=== PATIENT | male | born 1960 | race Caucasian/White ===

== ENCOUNTER 2022-05-13 11:26 | Outpatient (CLI) | payer OTHER | END 2022-05-13 11:27 | disposition home or self-care (01) | LOC: LABBT 11:26 | PROVIDERS: ATTEND Ophthalmology Retina Specialist | DX: Z20.822 Contact with and (suspected) exposure to COVID-19 (principal) | CPT/HCPCS: 87811 ==

== ENCOUNTER 2022-05-16 07:18 | Day surgery (SDC) | payer OTHER ==
[2022-05-14 15:56] VITALS: BMI 31.8
[~2022-05-16 07:18] MED LIST: Acetaminophen 500 MG TAB PO PRN; Cyclopentolate 1% Opth Drop 2 ML BOT R EYE SCH; EPINEPHrine 0.3 MG, Dextrose 50% 3 ML in Ophthalmic Irrigation Solution 500 ML IRR SCH; Midazolam HCl 2 mg/2 ml Vial ONE; Phenylephrine 2.5% Ophth Soln 5 ML BOT R EYE SCH; fentaNYL Citrate/PF 100 MCG/2 ML SYRINGE ONE
[2022-05-16] MEDS ORDERED: Cyclopentolate 1% Opth Drop 2 ML BOT ONE (07:37)
[2022-05-16] MEDS ORDERED: Phenylephrine 2.5% Ophth Soln 5 ML BOT ONE (07:37)
[2022-05-16] MEDS ORDERED: CEFAZOLIN 1 GM VIAL ONE (08:41)
[2022-05-16] MEDS ORDERED: PROPOFOL 200 MG/20 ML VIAL ONE (08:41)
[2022-05-16] MEDS ORDERED: Lidocaine 4% PF 5 ML AMP ONE (08:41)
[2022-05-16] MEDS ORDERED: Triamcinolone 40 MG/ML VIAL ONE (08:41)
[2022-05-16] MEDS ORDERED: Bupivacaine 0.75% 10 ML VIAL ONE (08:41)
[2022-05-16] MEDS ORDERED: Dextrose 50% Abboject 50 ML SYRINGE ONE (08:41)
[2022-05-16] MEDS ORDERED: Lidocaine 1% PF 5 ML VIAL ONE (08:41)
[2022-05-16] MEDS ORDERED: Maxitrol 0.1% Opth Oint 3.5 GM TUBE ONE (08:41)
== END 2022-05-16 09:57 | disposition home or self-care (01) ==
LOC: SDC 07:18
PROVIDERS: ATTEND Ophthalmology Retina Specialist
PROC: 08T43ZZ Resection of Right Vitreous, Percutaneous Approach (ICD-10-PCS; principal; 2022-05-16)
PROC: 08QE3ZZ Repair Right Retina, Percutaneous Approach (ICD-10-PCS; principal; 2022-05-16)
DX: H43.11 Vitreous hemorrhage, right eye (principal); E11.9 Type 2 diabetes mellitus without complications; Z79.84 Long term (current) use of oral hypoglycemic drugs; Z79.899 Other long term (current) drug therapy; Z88.6 Allergy status to analgesic agent
CPT/HCPCS: J0171; J0690; J2250; J2704; J3301; J3490; J7999